=== PATIENT | male | born 1975 | race Caucasian/White ===

== ENCOUNTER 2016-11-17 06:29 | Emergency (ER) | payer OTHER ==
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
--- NOTE | 2016-11-17 09:35 | DIAGNOSTIC IMAGING REPORT ---
PROCEDURE: XR CHEST 2 VIEW INDICATION: SHORTNESS OF BREATH TECHNIQUE: PA and lateral views. COMPARISON: None. FINDINGS: Left subclavian pacemaker. Lungs are clear. Heart and mediastinum are normal. Thorax is normal. IMPRESSION: 1. Left subclavian pacemaker. 2. Otherwise negative chest.
--- NOTE | 2016-11-17 09:36 | DIAGNOSTIC IMAGING REPORT ---
PROCEDURE: XR ABDOMEN 1 VIEW UPRIGHT INDICATION: ABDOMINAL PAIN TECHNIQUE: AP upright view. COMPARISON: None. FINDINGS: Bowel pattern is normal. Surgical clips in the epigastric region. Soft tissues and osseous structures are normal. No evidence of free air. Pelvis is not seen in its entirety, and partially obscured by overlying densities. IMPRESSION: 1. Negative upright abdomen. 2. Findings discussed with Dr. Feltcher.
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
--- NOTE | 2016-12-15 12:18 | ED MED RECONCILIATION SUMMARY ---
Patient: LYNSEY MALAVE Medication Reconciliation Report [facility] VisitID: [id number] [address] [place] [address] 41y, M Registration Date/Time: 11/17/2016 Weight: 92.9 kg Height/Length: 77 in. BMI: 24.3 ALLERGIES: No Known Drug Allergy The patient's Home Medications are listed below: THE FOLLOWING MEDICATIONS NEED TO BE RECONCILED: Acetaminophen Oral Gabapentin Oral LamoTRIgine Oral Oxycodone-Acetaminophen Oral Senna Lax Oral The source(s) of the original Home Medication information: patient The following Medications were given to the patient in the Emergency Department: IV NS IV Fluids bolus 0, then 1000 mL/hr, administered: 11/17/2016 7:14:00 AM Zofran [IVP] IVP 4 mg, administered: 11/17/2016 7:14:00 AM Dilaudid [IVP] IVP 1 mg, administered: 11/17/2016 7:14:00 AM The following Medications were prescribed to the patient: None.
--- NOTE | 2016-12-15 12:18 | ED MAR SUMMARY ---
..... Medication Administration Record [facility] [address] [place] [address] Patient: LYNSEY MALAVE Visit ID: [id number] 41y, M Weight: 92.9 kg Height/Length: 77 in BMI: 24.3 ALLERGIES: No Known Drug Allergy Start 07:14 11/17/2016 Alicia Bullard,, Continued Upon Transfer 07:54 11/17/2016 Sherron Escalona R.N. Medication Administered: IV NS (SALINE), Dose: IV Fluids over 1 hour(s), Rate: 1000 mL/hr, Dispensed: 1000 mL bag, Site: #1 right AC. Medication Ordered: IV NS : initial bolus 1000 mL (1000 mL/hr), then 250 mL/hr for X4 (NOW). Given 07:14 11/17/2016 Alicia Bullard, Medication Administered: ZOFRAN [IVP] (ONDANSETRON HCL), Dose: 4 mg IVP over 1 minute(s), Site: #1 right AC. Medication Ordered: Zofran IV 4 mg (NOW). Given 07:14 11/17/2016 Alicia Bullard, Medication Administered: DILAUDID [IVP] (HYDROMORPHONE HCL PF), Dose: 1 mg IVP over 1 minute(s), Site: #1 right AC. Medication Ordered: Dilaudid IV 1 mg (HIGH ALERT MEDICATION, NOW).
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
--- NOTE | 2016-12-15 12:18 | ED MED RECONCILIATION SUMMARY ---
Patient: LYNSEY MALAVE Medication Reconciliation Report [facility] VisitID: [id number] [address] [place] [address] 41y, M Registration Date/Time: 11/17/2016 Weight: 92.9 kg Height/Length: 77 in. BMI: 24.3 ALLERGIES: No Known Drug Allergy The patient's Home Medications are listed below: THE FOLLOWING MEDICATIONS NEED TO BE RECONCILED: Acetaminophen Oral Gabapentin Oral LamoTRIgine Oral Oxycodone-Acetaminophen Oral Senna Lax Oral The source(s) of the original Home Medication information: patient The following Medications were given to the patient in the Emergency Department: IV NS IV Fluids bolus 0, then 1000 mL/hr, administered: 11/17/2016 7:14:00 AM Zofran [IVP] IVP 4 mg, administered: 11/17/2016 7:14:00 AM Dilaudid [IVP] IVP 1 mg, administered: 11/17/2016 7:14:00 AM The following Medications were prescribed to the patient: None.
--- NOTE | 2016-12-15 12:18 | ED MAR SUMMARY ---
..... Medication Administration Record [facility] [address] [place] [address] Patient: LYNSEY MALAVE Visit ID: [id number] 41y, M Weight: 92.9 kg Height/Length: 77 in BMI: 24.3 ALLERGIES: No Known Drug Allergy Start 07:14 11/17/2016 Alicia Bullard,, Continued Upon Transfer 07:54 11/17/2016 Sherron Escalona R.N. Medication Administered: IV NS (SALINE), Dose: IV Fluids over 1 hour(s), Rate: 1000 mL/hr, Dispensed: 1000 mL bag, Site: #1 right AC. Medication Ordered: IV NS : initial bolus 1000 mL (1000 mL/hr), then 250 mL/hr for X4 (NOW). Given 07:14 11/17/2016 Alicia Bullard, Medication Administered: ZOFRAN [IVP] (ONDANSETRON HCL), Dose: 4 mg IVP over 1 minute(s), Site: #1 right AC. Medication Ordered: Zofran IV 4 mg (NOW). Given 07:14 11/17/2016 Alicia Bullard, Medication Administered: DILAUDID [IVP] (HYDROMORPHONE HCL PF), Dose: 1 mg IVP over 1 minute(s), Site: #1 right AC. Medication Ordered: Dilaudid IV 1 mg (HIGH ALERT MEDICATION, NOW).
== END 2016-11-17 07:53 | disposition short-term general hospital (02) ==
LOC: ED SRH 06:29
DX: K59.00 Constipation, unspecified (principal); S32.9XXD Fracture of unspecified parts of lumbosacral spine and pelvis, subsequent encounter for fracture with routine healing; Z79.899 Other long term (current) drug therapy
CPT/HCPCS: 90100; 91643; 92235; 92530; 95059